=== PATIENT | female | born 1990 | race Caucasian/White ===

== ENCOUNTER 2017-07-10 06:36 | Emergency (ER) | payer SELFPAY ==
[2017-07-10 07:22] VITALS: BMI 34.3
--- NOTE | 2017-07-10 07:24 | PDOC ---
Attending Attestation - Resident Resident Name: JetShalini - ED Attending Attestation I have performed the following: I have examined & evaluated the patient, The case was reviewed & discussed with the resident, I agree w/resident's findings & plan, Exceptions are as noted - HPI HPI: 07/10/17 07:36 27y F presents with complaint of intermittent R adnexal pain that radiates down her inner thigh - pt states she sporatically has the pain for a while (~ many months), but hte past 2 days, it got worse and is more constant. 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 pt does note she has had denver loose stools yesterday. she denies any n/v, but notes she did vomit earlier. denies any fever/chills, back pain, numbness/tingling/weakness, dysuria. pt notes her lmp was in mid oct, and had some spotting in early nov, but has not had any other vag bleeding. on exam pt is well appearing, in no distress abd is soft nontender no pain or reproducibility of pain with elevation oer her leg/hip will ck labs ua to r/o US to r/o ovarian pathology (cysts vs. torsion) - Physicial Exam PE: 07/13/17 18:53 see above - Medical Decision Making results noted for neg hcg pelvic US noted for L ovaryian cyst w/o signs of torsion pt feeling imrpoved will dc with pmd fu return precuations were discussed
--- NOTE | 2017-07-10 07:42 | PDOC ---
History of Present Illness - General Chief Complaint: Pain Stated Complaint: PAIN Time Seen by Provider: 07/10/17 07:11 History Source: Patient Exam Limitations: No Limitations - History of Present Illness Initial Comments: This is a 27 YOF with h/o spinal abscess, chronic undiagnosed diarrhea, and ovarian cyst who presents with 7/10 burning lower RLQ pain radiating down the medial RLE for about the past year, exacerbated since yesterday. She has taken no medications for the pain but was seen for this yesterday at [facility] ED, had blood and urine work, and was told that everything was normal. This feels the same as her prior exacerbations of this pain, but the difference in this exacerbation that brought her to the ED is nausea and NBNB vomiting (one episode yesterday, two today). She additionally had a fleeting episode of burning chest pain yesterday which was one reason she went to [facility]. She notes urinary frequency, RLE tingling, and generalized shakes in the past couple of days. She denies fever, chills, back pain, SOB, numbness, tingling, focal weakness, incontinence, dysuria, vaginal bleeding or discharge, headache, vision changes, or any other new symptoms. Her LMP was on 05/10/17 and she had three days of spotting on 05/31/17 which she did not count as a menstrual period. She took a home test yesterday which was negative. Past History - Past Medical History Allergies/Adverse Reactions: Allergies Allergy/AdvReac Type Severity Reaction Status Date / Time Penicillins Allergy Verified 07/10/17 07:07 Home Medications: Ambulatory Orders NK [No Known Home Medication] 07/10/17 - Suicide/Smoking/Psychosocial Hx Smoking History: Current every day smoker Have you smoked in the past 12 months: Yes Number of Cigarettes Smoked Daily: 3 Information on smoking cessation initiated: No Hx Alcohol Use: Yes Drug/Substance Use Hx: Yes (marijuana) Review of Systems - Review of Systems Able to Perform ROS?: Yes Constitutional: No: Chills, Fever, Unexplained wgt Loss HEENTM: No: Nose Congestion, Throat Pain Respiratory: No: Cough, Shortness of Breath Cardiac (ROS): Yes: Chest Pain (once yesterday). No: Palpitations ABD/GI: Yes: Diarrhea, Nausea, Vomiting, Other (abdominal pain). No: Constipated : Yes: Frequency. No: Burning, Dysuria Musculoskeletal: No: Back Pain, Neck Pain Integumentary: No: Bruising, Rash Neurological: Yes: Tingling (RLE). No: Headache, Numbness, Weakness, Dizziness Endocrine: No: Unexplained Weight Gain, Unexplained Weight Loss *Physical Exam - Vital Signs Last Vital Signs Temp Pulse Resp BP Pulse Ox 98.2 F 98 H 20 119/97 100 07/10/17 07:00 07/10/17 07:00 07/10/17 07:00 07/10/17 07:00 07/10/17 07:00 - Physical Exam General Appearance: Yes: Nourished, Appropriately Dressed, Obese, Other (very well appearing young woman in no distress, laughing with SO in the room, answers appropriately, seems somewhat nonchalant). No: Apparent Distress HEENT: positive: EOMI, Normal Voice, Hearing Grossly Normal. negative: Scleral Icterus (R), Scleral Icterus (L), Nasal Congestion Neck: positive: Trachea midline, Supple. negative: Tender, Rigid Respiratory/Chest: positive: Lungs Clear, Normal Breath Sounds. negative: Respiratory Distress, Crackles, Rhonchi, Stridor, Wheezing Cardiovascular: positive: Regular Rhythm, Regular Rate. negative: Murmur Gastrointestinal/Abdominal: positive: Normal Bowel Sounds, Soft, Other (no tenderness to deep palpation of the RLQ, no tenderness where the patient points to indicate area of maximal pain). negative: Tender, Organomegaly, Pulsatile Mass, Guarding Musculoskeletal: positive: Normal Inspection. negative: Decreased Range of Motion, Vertebral Tenderness Extremity: positive: Normal Capillary Refill, Normal Inspection, Normal Range of Motion, Other (negative straight leg raise). negative: Tender, Cyanosis Integumentary: positive: Normal Color, Dry, Warm. negative: Erythema, Rash, Bruising Neurologic: positive: crystalizer tender II-XII NML intact (grossly), Fully Oriented, Alert, Normal Mood/Affect, Normal Response, Motor Strength 5/5 ED Treatment Course - LABORATORY CBC & Chemistry Diagram: 07/10/17 08:09 07/10/17 08:09 Medical Decision Making - Medical Decision Making 27 YOF with chronic diarrhea, ovarian cyst, 1 year of RLQ pain radiating down RLE p/w exacerbated RLQ pain now with n/v. Seen at [facility] ED yesterday for the same plus one fleeting episode of burning chest pain. VS notable for HR 98 but otherwise wnl, no distress on exam, no tenderness, negative straight leg raise, no rash. DDX IBNLT muscle strain/sprain, chronic enteritis/colitis, UTI, appendicitis, hernia (inguinal vs. femoral), ectopic , IUP, ovarian cyst, sciatica, etc. Ordered is CBCD, CMP, Mg, Phos, lipase, UA cx, U-preg, US pelvis limited. 07/10/17 11:23 WBC is 13k but otherwise no lab abnormality, U-preg is negative. Pelvic US without acute pathology or explanation of the patient's pain. Although the WBC is slightly elevated the patient's exam and repeat exam is without any abdominal tenderness. The patient is unlikely to have serious infection at this time as she is very well appearing, VS wnl, no ttp. She is appropriate for discharge home with close outpatient followup. Return precautions are discussed and she will come back for fever, increased pain, increased vomiting, etc. Referral info given for GI. *DC/Admit/Observation/Transfer Diagnosis at time of Disposition: Abdominal pain Qualifiers: Abdominal location: right lower quadrant Qualified Code(s): R10.31 - Right lower quadrant pain - Discharge Dispostion Disposition: HOME Condition at time of disposition: Stable Admit: No - Referrals Referrals: Gilberto Knowles MD [Staff Physician] - - Patient Instructions Additional Instructions: You were seen in the ER for abdominal pain, nausea, vomiting, and chronic diarrhea. We did blood labs, urine labs, and a pelvis ultrasound and there were no concerning abnormalities in any of the workup. You have a slightly elevated white blood cell count which can mean one of many different things. Most likely this is a stress response to the pain or vomiting. At this time we are not worried about infection. Please follow up with your regular doctor. You also need to follow up with a logging contractor to discuss your chronic diarrhea, and we are giving you referral info for one of our own gastroeneterologists. Please make an appointment with them. Please return to the ER for any new or worsening symptoms like fever, vomiting you cannot control, severe pain you cannot control with Motrin and Tylenol, blood in the stool, blood in the vomit, or other symptoms. - Post Discharge Activity
[2017-07-10 08:39] LABS: BASOPHIL 0.6 % (0-2.0); EOSINOPHIL 1.9 % (0-4.5); MCH 29.8 pg (25.7-33.7); MCHC 33.1 g/dl (32.0-36.0); MEAN CELL VOLUME 90.1 fl (80-96); MEAN PLT VOLUME 9.2 fl (7.5-11.1); NEUTROPHILS 69.8 % (42.8-82.8); PLATELET COUNT 272 K/MM3 (134-434); RDW 13.6 % (11.6-15.6)
[2017-07-10 08:48] LABS: URINE APPEARANCE CLEAR; URINE BILIRUBIN NEGATIVE (NEGATIVE); URINE BLOOD NEGATIVE (NEGATIVE); URINE COLOR STRAW; URINE GLUCOSE (UA) NEGATIVE (NEGATIVE); URINE KETONE TRACE (NEGATIVE); URINE LEUK ESTERASE NEGATIVE (NEGATIVE); URINE NITRITE NEGATIVE (NEGATIVE); URINE PROTEIN NEGATIVE (NEGATIVE); URINE UROBILINOGEN NEGATIVE mg/dL (0.2-1.0)
[2017-07-10 08:55] LABS: ALK PHOS 89 U/L (45-117); ANION GAP 9 (8-16); BILIRUBIN,TOTAL 0.4 mg/dL (0.2-1.0); CALCIUM 9.3 mg/dL (8.5-10.1); CO2 27 mmol/L (21-32); CREATININE 0.7 mg/dL (0.55-1.02); GLUCOSE,RANDOM 82 mg/dL (74-106); PHOSPHOROUS 3.2 mg/dL (2.5-4.9); SGPT/ALT 39 U/L (12-78); TOT PROT 7.7 g/dl (6.4-8.2)
[2017-07-10] MEDS ORDERED: ACETAMINOPHEN 325 MG TABLET (FP) PO ONE (09:50)
[2017-07-10] MEDS ORDERED: ACETAMINOPHEN 325 MG TABLET (FP) ONE (09:53)
[2017-07-10 10:04] LABS: SGOT/AST 30 U/L (15-37)
[2017-07-10 10:59] LABS: URINE LEUK ESTERASE Negative (NEGATIVE)
[2017-07-10 11:38] VITALS: BP 131/80; PULSE 70; TEMP 98.4
== END 2017-07-10 12:35 | disposition home or self-care (01) ==
LOC: JER 06:36
DX: R10.31 Right lower quadrant pain (principal); K52.9 Noninfective gastroenteritis and colitis, unspecified; N83.202 Unspecified ovarian cyst, left side
CPT/HCPCS: 36415; 76856-TC; 80053; 81003; 83690; 84100; 84703; 85025; 87086; 99283-25

== ENCOUNTER 2017-11-19 05:17 | Day surgery (SDC) | payer OTHER ==
[2017-11-18 14:58] VITALS: BMI 32.2
[~2017-11-19 05:17] MED LIST: oxyCODONE HCL 5 MG TABLET PO ONE
[2017-11-19] MEDS ORDERED: MIDAZOLAM HCL 2 MG/2 ML SINGLE DOSE VIAL ONE (10:57)
[2017-11-19] MEDS ORDERED: PROPOFOL 20 ML ONE ×2 (10:57)
[2017-11-19] MEDS ORDERED: LIDOCAINE HCL/PF 2% SDV 5ML VIAL ONE (11:02)
--- NOTE | 2017-11-19 11:31 | HP ---
History & Physical Update - History History: No Change - Physical Physical: No Change - Assessment Assessment: No Change - Plan Plan: No Change (No change in HP by me 11/17/17)
[2017-11-19] MEDS ORDERED: BUPIVACAINE HCL/PF 0.5% (5MG/ML) 10 ML VIAL ONE (11:57)
[2017-11-19] MEDS ORDERED: DESFLURANE GAS 240 ML BOTTLE IH ONE (11:57)
[2017-11-19] MEDS ORDERED: CLINDAMYCIN PHOSPHATE 600 MG/4 ML VIAL ONE (11:59)
[2017-11-19] MEDS ORDERED: CLINDAMYCIN PHOSPHATE 600 MG/4 ML VIAL IVPB ONE (12:01)
[2017-11-19] MEDS ORDERED: NEOSTIGMINE METHYLSULFATE 0.5 MG/ML - 10 ML MDV ONE (12:59)
[2017-11-19] MEDS ORDERED: oxyCODONE HCL 5 MG TABLET PO PRN ×2 (14:52)
[2017-11-19] MEDS ORDERED: ONDANSETRON 4 MG/2 ML VIAL IVPUSH PRN (14:52)
[2017-11-19] MEDS ORDERED: LACTATED RINGERS SOLUTION 1,000 ML IV SCH (15:00)
[2017-11-19] MEDS ORDERED: oxyCODONE HCL 5 MG TABLET ONE (15:56)
[2017-11-19 16:16] VITALS: TEMP 97.9
[2017-11-19 17:09] VITALS: BP 128/66; PULSE 68
--- NOTE | 2017-11-20 16:34 | PATH ---
Surgical Pathology Report Patient Name: LILIANA ANDERSON [facility]. Rec. #: [id number] /Age/Gender: 1990 (Age: 27) / F Account: [id number] Location: AMBULATORY SURG Taken: 11/19/2017 Received: 11/19/2017 Reported: 11/20/2017 Physicians: Guera Thomas M.D. Specimen(s) Received A: LEFT OVARIAN CYST WALL B: UTERINE CONTENTS Clinical History Menorrhagia, submucosal myoma, ovarian cyst Final Diagnosis A. OVARY, CYST WALL, LEFT, CYSTECTOMY: FRAGMENTS OF CYST WALL CONSISTENT WITH SEROUS CYSTADENOMA. B. CONTENTS OF UTERUS, DILATION AND CURETTAGE: FRAGMENTS OF PROLIFERATIVE ENDOMETRIUM, FRAGMENTS OF SMOOTH MUSCLE SUGGESTIVE OF SUBMUCOSAL LEIOMYOMA, AND BENIGN ENDOCERVICAL TISSUE. Electronically Signed Tosha Cool M.D. Gross Description A. Received in formalin labeled "left ovarian cyst wall," is a 5.3 x 2.5 x 1.2 cm disrupted cyst. The outer surface is pink-toure and smooth. The inner lining is toure and smooth. No excrescences are identified. Hourly Manager sections are submitted in 2 cassettes. B. Received in formalin labeled "contents of uterus," is a 2 g, 2.5 x 1.8 x 0.3 cm aggregate of multiple toure, firm to rubbery portions of tissue. The formalin is filtered and the specimen is entirely submitted in one cassette. /11/19/2017 saudi11/19/2017
--- NOTE | 2017-12-28 11:58 | OP ---
DATE OF OPERATION: 11/19/2017 PREOPERATIVE DIAGNOSIS: Ovarian cyst, submucosal myoma, leiomyomatous uterus. OPERATION: Hysteroscopic myomectomy and laparoscopic left ovarian cystoscopy and suction dilation and curettage. SURGEON: Raul Gustafson MD HAND CEMENTER: SHERRELL Holcomb ANESTHESIOLOGIST: Dr. Oconnor and Blu Chandra CRNA FINDINGS: Submucosal myoma seen in the endometrium and left ovary noted to have a cystadenoma. DESCRIPTION OF PROCEDURE: The patient was taken to the operating room and placed in dorsal lithotomy position, prepped and draped in the usual sterile fashion. A time-out was performed in accordance with hospital regulation. Alberts catheter was inserted into the bladder. Attention was then drawn to the umbilicus where a 5-mm umbilical incision was made. Veress needle was inserted into the cavity. Approximately 3-4 L of CO2 was insufflated. Veress needle was then removed, and a 5-mm trocar was then inserted. Laparoscope and camera were attached. Two trocars were placed in the lower left and right abdomen after 5-mm incisions had been made. Trocars were placed under direct visualization. Grasper and Endo Dylan were then attached, and the right ovary was noted to be normal. Left ovary noted to have ovarian cyst. Endo Dylan were then used to open the cyst wall, and a cystectomy using sharp and direct removal of the cyst wall was then done. Cauterization of the ovary was then performed. Right ovary was noted to be normal. Cyst wall was then removed and submitted to Pathology. Hemostasis was achieved. Tubes were noted to be normal. All instruments were then removed from the abdomen. Incisions were then closed using 4-0 Biosyn suture after CO2 was removed. Attention was then drawn to the vagina where a speculum was placed in the vagina. Anterior lip of the cervix was grasped with a single-tooth tenaculum. The cervix was then dilated to accommodate the operative hysteroscope. Submucosal myoma was then seen, and hysteroscopic myomectomy was then performed. Large amounts of myoma was removed, and suction dilation and curettage was performed. The cavity was noted to be within normal limits. All instruments were then removed. The patient tolerated the procedure well. Estimated blood loss was about 30 mL. RAUL GUSTAFSON M.D. [id number]
== END 2017-11-19 17:15 | disposition home or self-care (01) ==
LOC: JASU-SURG 05:17 → JASUSAT 05:17
PROVIDERS: ATTEND Obstetrics & Gynecology
PROC: 0UJD8ZZ Inspection of Uterus and Cervix, Via Natural or Artificial Opening Endoscopic (ICD-10-PCS; 2017-11-19)
PROC: 0UB14ZZ Excision of Left Ovary, Percutaneous Endoscopic Approach (ICD-10-PCS; principal; 2017-11-19 11:00)
PROC: 0UB98ZZ Excision of Uterus, Via Natural or Artificial Opening Endoscopic (ICD-10-PCS; 2017-11-19 11:00)
PROC: 0UDB7ZX Extraction of Endometrium, Via Natural or Artificial Opening, Diagnostic (ICD-10-PCS; 2017-11-19 11:00)
DX: D25.0 Submucous leiomyoma of uterus (principal); N83.202 Unspecified ovarian cyst, left side
CPT/HCPCS: 86850; 86900; 86901; 88305-TC; 88307-TC; 94760